=== PATIENT | female | born 1960 | race Caucasian/White ===

== ENCOUNTER → 2020-10-21 | Outpatient (CLI) | payer BC ==
[~2020-10-21] MED LIST: ASCO1500 PO; CALC500T93 PO; CHOL10003 PO; MAGN500C9 PO; MULT-449 PO; NAPR-856 PO; OMEP20TA62 PO; THYR15TA6 PO; TURM500C4 PO; VITA1CAP PO
== END | disposition home or self-care (01) ==
LOC: STAR 09:17
PROVIDERS: ATTEND Obstetrics & Gynecology Female Pelvic Medicine and Reconstructive Surgery
DX: Z01.818 Encounter for other preprocedural examination (principal); N81.10 Cystocele, unspecified; R10.2 Pelvic and perineal pain; N81.6 Rectocele; N39.3 Stress incontinence (female) (male)
CPT/HCPCS: 93005

== ENCOUNTER 2020-10-27 06:35 | Day surgery (SDC) | payer BC ==
[~2020-10-27] VITALS: Ht 154.9 cm; Wt 65.9 kg
[2020-10-27] MEDS ORDERED: EPINEPHRINE 1 MG/ML, 1ML ONE (06:52)
[2020-10-27] MEDS ORDERED: BUPIVACAINE/PF 0.25% ONE (06:52)
[2020-10-27] MEDS ORDERED: NEOMY/POLYMYXIN B GU IRR. 1 ML ONE (06:52)
[2020-10-27] MEDS ORDERED: CHLORHEXIDINE 15 ML UDC MM STA (06:56)
[2020-10-27] MEDS ORDERED: LACTATED RINGERS 1,000 ML IV SCH (07:00)
[2020-10-27] MEDS ORDERED: FUROSEMIDE 20 MG/2 ML ONE (08:02)
[2020-10-27] MEDS ORDERED: FENTANYL PF 100 MCG/2ML ONE ×2 (08:08→09:35)
[2020-10-27] MEDS ORDERED: MIDAZOLAM 1 MG/ML, 2ML ONE (08:08)
[2020-10-27] MEDS ORDERED: PROPOFOL 10 MG/ML, 20ML ONE (08:38)
[2020-10-27] MEDS ORDERED: SUCCINYLCHOLINE 20 MG/ML, 10ML ONE (08:38)
[2020-10-27] MEDS ORDERED: ROCURONIUM 10 MG/ML,10ML ONE (08:38)
[2020-10-27] MEDS ORDERED: CEFAZOLIN 1,000 MG ONE (08:38)
[2020-10-27] MEDS ORDERED: hydrALAzine 20 MG/ML, 1ML IV PRN (09:00)
[2020-10-27] MEDS ORDERED: PROMETHAZINE 25 MG/ML, 1ML IV PRN (09:00)
[2020-10-27] MEDS ORDERED: LABETALOL 5MG/ML, 20ML IV PRN (09:00)
[2020-10-27] MEDS ORDERED: KETOROLAC 30 MG/1 ML IV PRN (09:00)
[2020-10-27] MEDS ORDERED: ACETAMINOPHEN 325 MG TABLET PO PRN (09:00)
[2020-10-27] MEDS ORDERED: FENTANYL PF 100 MCG/2ML IV PRN (09:00)
[2020-10-27] MEDS ORDERED: HYDROmorphone 2 MG/ML, 1ML IVPush PRN (09:00)
[2020-10-27] MEDS ORDERED: OXYcodone 5 MG/5 ML ORAL.SOL UDC PO PRN (09:00)
[2020-10-27] MEDS ORDERED: DIAZEPAM 5 MG/ML, 2ML IVPush PRN (09:00)
[2020-10-27] MEDS ORDERED: ALBUTEROL SULFATE 2.5 MG/3 ML NPPB PRN (09:00)
[2020-10-27] MEDS ORDERED: MEPERIDINE/PF 25MG/0.5ML IVPush PRN (09:00)
[2020-10-27] MEDS ORDERED: ACETAMINOPHEN 650 MG/20.3 ML UDC ONE (09:36)
[2020-10-27] MEDS ORDERED: OXYcodone 5 MG/5 ML ORAL.SOL UDC ONE (09:36)
== END 2020-10-27 11:45 | disposition home or self-care (01) ==
LOC: EDBD → OUT 06:35
PROVIDERS: ATTEND Obstetrics & Gynecology Female Pelvic Medicine and Reconstructive Surgery
DX: N81.89 Other female genital prolapse (principal); N94.10 Unspecified dyspareunia; N39.46 Mixed incontinence; N81.11 Cystocele, midline; N81.5 Vaginal enterocele; N81.6 Rectocele; Z20.822 Contact with and (suspected) exposure to COVID-19; Z79.899 Other long term (current) drug therapy; Z88.2 Allergy status to sulfonamides
CPT/HCPCS: 57265; 57282; 57288; 87635; C1771; J0171; J0330; J0690; J1940; J2250; J2704; J3010; J7120